=== PATIENT | male | born 1935 | race Caucasian/White ===

== ENCOUNTER 2017-11-22 20:21 | Inpatient (IN) | payer OTHER ==
[~2017-11-22] VITALS: Ht 167.6 cm; Wt 72.6 kg
[~2017-11-22 20:21] MED LIST: ASA325 M1; ASA325 M1 PO; CARDURA1 MG PO; CARdura 4MG TABLET PO; CILOSTAZOL100 MG; DIOVAN320 MG; HEMATRON P.O.1 UDTAB; ISOSORBIDE DINI30 MG; Imdur 30MG PO; NORVASC5 MG; PLAVIX75 MG; TOPROL XL25 MG; Toprol Xl 50MG TAB PO; ZOCOR5 MG
== END 2017-11-27 17:43 | disposition expired | DRG 682 ==
LOC: ER 20:21 → MEDI 11-23 09:28 → SEC-K 11-23 09:28 → MEDI 11-23 09:49
PROC: BW40ZZZ Ultrasonography of Abdomen (ICD-10-PCS; 2017-11-23)
PROC: 4A12X4Z Monitoring of Cardiac Electrical Activity, External Approach (ICD-10-PCS; 2017-11-23)
PROC: 3E0F7GC Introduction of Other Therapeutic Substance into Respiratory Tract, Via Natural or Artificial Opening (ICD-10-PCS; principal; 2017-11-24)
PROC: 4A033R1 Measurement of Arterial Saturation, Peripheral, Percutaneous Approach (ICD-10-PCS; 2017-11-24)
PROC: B246ZZZ Ultrasonography of Right and Left Heart (ICD-10-PCS; 2017-11-24)
PROC: 5A09457 Assistance with Respiratory Ventilation, 24-96 Consecutive Hours, Continuous Positive Airway Pressure (ICD-10-PCS; 2017-11-25)
PROC: 06HN33Z Insertion of Infusion Device into Left Femoral Vein, Percutaneous Approach (ICD-10-PCS; 2017-11-27)
DX: N17.8 Other acute kidney failure (principal); I50.23 Acute on chronic systolic (congestive) heart failure; J96.01 Acute respiratory failure with hypoxia; I24.9 Acute ischemic heart disease, unspecified; I13.0 Hypertensive heart and chronic kidney disease with heart failure and stage 1 through stage 4 chronic kidney disease, or unspecified chronic kidney disease; E87.2 Acidosis; E86.0 Dehydration; E87.5 Hyperkalemia; N18.3 Chronic kidney disease, stage 3 (moderate); I25.10 Atherosclerotic heart disease of native coronary artery without angina pectoris; I34.0 Nonrheumatic mitral (valve) insufficiency; Z66 Do not resuscitate; K52.89 Other specified noninfective gastroenteritis and colitis; I46.2 Cardiac arrest due to underlying cardiac condition